=== PATIENT | female | born 1995 | race Two or more races ===

== ENCOUNTER 2018-07-23 03:37 | Emergency (ER) | payer BC ==
[~2018-07-23] VITALS: Ht 160 cm; Wt 63.5 kg
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
--- NOTE | 2018-07-23 04:15 | NUR ---
Patient discharged to home in stable conditon. Written and verbal after care instructions given. Patient verbalizes understanding of instructions. Patient able to ambulate unassisted with a steady gait. Patient left with all personal belongings.
[2018-07-23 04:19] VITALS: BP 121/84
== END 2018-07-23 04:15 | disposition home or self-care (01) ==
LOC: ER 03:39
DX: S00.03XA Contusion of scalp, initial encounter (principal); W22.8XXA Striking against or struck by other objects, initial encounter; Y93.89 Activity, other specified; Y92.89 Other specified places as the place of occurrence of the external cause; Y99.8 Other external cause status
CPT/HCPCS: 99281; A4663